=== PATIENT | male | born 1975 | race Caucasian/White ===

== ENCOUNTER 2021-07-09 12:34 | Emergency (ER) | payer SELFPAY ==
[~2021-07-09] VITALS: Ht 193 cm; Wt 104.0 kg
[2021-07-09 12:51] VITALS: BP 155/93
--- NOTE | 2021-07-09 13:27 | PHYS DOC ---
Past Medical History Past Medical History: No Pertinent History Past Surgical History: No Surgical History General Adult EDM: Chief Complaint: OTHER COMPLAINTS HPI: HPI: Patient is a 46-year-old male that presents today with tailbone pain. Patient states for the past week he has had increasing pain in his tailbone hurts to sit and he is here today for evaluation of this. 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 Patient denies fever and chills, he states he has been able to defecate without any difficulty and he is able to urinate without any difficulty as well. Review of Systems: Review of Systems: Constitutional: Denies fever or chills. [] Eyes: Denies change in visual acuity. [] HENT: Denies nasal congestion or sore throat. [] Respiratory: Denies cough or shortness of breath. [] Cardiovascular: Denies chest pain or edema. [] GI: Denies abdominal pain, nausea, vomiting, bloody stools or diarrhea. [] : Denies dysuria. [] Musculoskeletal: coccyx pain Denies back pain or joint pain. [] Integument: Denies rash. [] Neurologic: Denies headache, focal weakness or sensory changes. [] Endocrine: Denies polyuria or polydipsia. [] Lymphatic: Denies swollen glands. [] Psychiatric: Denies depression or anxiety. [] Heart Score: C/O Chest Pain: N/A Risk Factors: Risk Factors: DM, Current or recent (<one month) smoker, HTN, HLP, family history of CAD, obesity. Risk Scores: Score 0 - 3: 2.5% MACE over next 6 weeks - Discharge Home Score 4 - 6: 20.3% MACE over next 6 weeks - Admit for Clinical Observation Score 7 - 10: 72.7% MACE over next 6 weeks - Early Invasive Strategies Allergies: Allergies: Allergies Coded Allergies Type Severity Reaction Last Updated Verified No Known Drug Allergies 07/09/21 No Physical Exam: PE: Constitutional: Well developed, well nourished, no acute distress, non-toxic appearance. [] HENT: Normocephalic, atraumatic, bilateral external ears normal, oropharynx moist, no oral exudates, nose normal. [] Eyes: PERRLA, EOMI, conjunctiva normal, no discharge. [] Neck: Normal range of motion, no tenderness, supple, no stridor. [] Cardiovascular:Heart rate regular rhythm, no murmur [] Lungs & Thorax: Bilateral breath sounds clear to auscultation [] Abdomen: Bowel sounds normal, soft, no tenderness, no masses, no pulsatile masses. [] Skin: Warm, dry, no erythema, no rash. [] Back: Inspection and palpation of the coccyx area shows no redness no swelling, he does have tenderness with palpation directly to the intergluteal cleft no abscess or firm area noted. Extremities: No tenderness, no cyanosis, no clubbing, ROM intact, no edema. [] Neurologic: Alert and oriented X 3, normal motor function, normal sensory function, no focal deficits noted. [] Psychologic: Affect normal, judgement normal, mood normal. [] Current Patient Data: Labs: Laboratory Tests Test 07/09/21 14:27 Urine Collection Type Unknown Urine Color Yellow Urine Clarity Clear Urine pH 7.5 Urine Specific [place] 1.015 Urine Protein Negative mg/dL Urine Glucose (UA) Negative mg/dL Urine Ketones (Stick) Negative mg/dL Urine Blood Negative Urine Nitrite Negative Urine Bilirubin Negative Urine Urobilinogen Dipstick 0.2 mg/dL Urine Leukocyte Esterase Negative Urine RBC Occ /HPF Urine WBC Occ /HPF Urine Squamous Epithelial Cells Few /LPF Urine Bacteria 0 /HPF Vital Signs: Vital Signs Date Time Temp Pulse Resp B/P (MAP) Pulse Ox O2 Delivery O2 Flow Rate FiO2 07/09/21 12:51 98.0 100 16 155/93 (113) 98 Room Air 98.0 Vital Signs Date Time Temp Pulse Resp B/P (MAP) Pulse Ox O2 Delivery O2 Flow Rate FiO2 07/09/21 12:51 98.0 100 16 155/93 (113) 98 Room Air 98.0 EKG: EKG: [] Radiology/Procedures: Radiology/Procedures: REASON: coccyx pain with no trauma or abscess PROCEDURE: CT PELVIS WO CONTRAST EXAMINATION: CT PELVIS WITHOUT IV CONTRAST CLINICAL HISTORY: Coccyx pain with no trauma or abscess TECHNIQUE: Noncontrast serial axial images obtained through the bony pelvis with sagittal and coronal reconstructions. CT Dose Reduction Employed: One or more of the following individualized dose reduction techniques were utilized for this examination: 1. Automated exposure control 2. Adjustment of the mA and/or kV according to patient size 3. Use of iterative reconstruction technique. COMPARISON: None available FINDINGS: Transitional lumbosacral vertebra demonstrating incomplete fusion of the posterior elements at this level. For the purposes of this report, this level will be referred to as L5. No evidence of acute fracture. Small corticated osseous density along the posterior sacrococcygeal junction, nonspecific but could be related to remote trauma. The coccyx is otherwise unremarkable. Probable tiny remote ununited fracture through the anterior superior left acetabulum. Mild degenerative changes bilateral SI joints. Partially visualized lumbar degenerative changes. Joint space in the bilateral hips relatively well- maintained with multiple subchondral cysts and small marginal osteophytes. Pubic symphysis within normal limits. Slightly heterogeneous mineralization in the posterior ilium bilaterally, nonspecific. Visualized muscles and tendons unremarkable on limited evaluation. Abdominopelvic viscera are grossly unremarkable. IMPRESSION: Transitional lumbosacral vertebra referred to as L5 for the purposes of this report. No evidence of acute osseous abnormality. Nonspecific small corticated along the posterior sacrococcygeal junction, possibly related to remote trauma. Probable tiny remote left acetabular fracture. Degenerative changes as described. Electronically signed by: Alejandro De Leon DO (07/09/2021 2:14 PM) [facility] [] Course & Med Decision Making: Course & Med Decision Making Pertinent Labs and Imaging studies reviewed. (See chart for details) 1500 reviewed radiological and laboratory results with patient did inform him no acute findings can be found at this time. Patient is encouraged to follow-up with his primary care physician or one of the listed clinics for further management of this. Patient will be instructed to take [id number] Motrin and I will also prescribe hydrocodone's for severe pain. Patient is encouraged to return to the emergency department if the development of an abscess or patient has numbness or tingling down his legs or inability to void or defecate or has loss of bowel or bladder control. [place] Disclaimer: Tam Disclaimer: This electronic medical record was generated, in whole or in part, using a voice recognition dictation system. Departure Departure Impression: Primary Impression: Coccyx pain Disposition: 01 HOME / SELF CARE / HOMELESS Condition: STABLE Patient Instructions: Musculoskeletal Pain Additional Instructions: Meby-yeu-lalufti ibuprofen as labeled directed for mild to moderate pain, take with food may cause GI upset Hydrocodone take 1 tablet every 6 hours as needed for moderate to severe pain, use with caution may cause drowsiness and constipation Follow-up with your primary care physician in the next 5 to 7 days if your pain is not improved Return to the emergency department if you have loss of bowel or bladder control, inability to void or defecate have any numbness or tingling in your pelvis area or development of an abscess in that area. [facility] [address] [place] [address] [facility] [address] [place] [address] [facility] [address] [facility] [place] [address] [facility] [address] [place] [address] [facility] [address] [place] [address] [facility] [address] [place] [address] [facility] [address] [place] [address] [facility] [place] [address] [place] [address] [facility] [address] [place] [address] [facility] [address] [place] [address] Scripts Hydrocodone Bit/Acetaminophen (HYDROCODONE-APAP 5-325 ) 1 Tab Tablet 1 TAB PO PRN Q6HRS PRN for PAIN, #10 TAB 0 Refills Prov: KETAN [employer]GAL 07/09/21 KETAN [employer] Jul 09, 2021 13:27
--- NOTE | 2021-07-09 14:16 | RAD ---
EXAMINATION: CT PELVIS WITHOUT IV CONTRAST CLINICAL HISTORY: Coccyx pain with no trauma or abscess TECHNIQUE: Noncontrast serial axial images obtained through the bony pelvis with sagittal and coronal reconstructions. CT Dose Reduction Employed: One or more of the following individualized dose reduction techniques wer e utilized for this examination: 1. Automated exposure control 2. Adjustment of the mA and/or kV ac cording to patient size 3. Use of iterative reconstruction technique. COMPARISON: None available FINDINGS: Transitional lumbosacral vertebra demonstrating incomplete fusion of the posterior elements at this l evel. For the purposes of this report, this level will be referred to as L5. No evidence of acute fracture. Small corticated osseous density along the posterior sacrococcygeal ju nction, nonspecific but could be related to remote trauma. The coccyx is otherwise unremarkable. Prob able tiny remote ununited fracture through the anterior superior left acetabulum. Mild degenerative changes bilateral SI joints. Partially visualized lumbar degenerative changes. Join t space in the bilateral hips relatively well-maintained with multiple subchondral cysts and small ma rginal osteophytes. Pubic symphysis within normal limits. Slightly heterogeneous mineralization in th e posterior ilium bilaterally, nonspecific. Visualized muscles and tendons unremarkable on limited evaluation. Abdominopelvic viscera are grossly unremarkable. IMPRESSION: Transitional lumbosacral vertebra referred to as L5 for the purposes of this report. No evidence of acute osseous abnormality. Nonspecific small corticated along the posterior sacrococcygeal junction, possibly related to remote trauma. Probable tiny remote left acetabular fracture. Degenerative changes as described. Electronically signed by: Alejandro De Leon DO (07/09/2021 2:14 PM) [facility]
[2021-07-09 14:46] LABS: BILIRUBIN,URINE NEGATIVE (NEG); CLARITY,URINE CLEAR; COLOR,URINE YELLOW; NITRITE,URINE NEGATIVE (NEG); PH,URINE 7.5 (<5.0-8.0); PROTEIN,URINE NEGATIVE (NEG-TRACE); UROBILINOGEN,URINE 0.2 mg/dL (0.2 mg/dL)
[2021-07-09 14:49] LABS: BACTERIA,URINE 0 /HPF (0-FEW); RBC,URINE OCC /HPF (0-2); WBC,URINE OCC /HPF (0-4)
[2021-07-09] MEDS ORDERED: HYDR-2761 PO (15:16)
== END 2021-07-09 15:38 | disposition home or self-care (01) ==
LOC: ER 12:34
DX: M53.3 Sacrococcygeal disorders, not elsewhere classified (principal)
CPT/HCPCS: 72192; 81001; 99284-25